=== PATIENT | male | born 1995 | race Caucasian/White ===

== ENCOUNTER 2018-11-19 00:14 | Emergency (ER) | payer OTHER | END 2018-11-19 01:36 | disposition other institution (70) | LOC: ED 00:14 | DX: Z02.89 Encounter for other administrative examinations (principal) ==

== ENCOUNTER 2018-11-19 00:14 | Emergency (ER) | payer SELFPAY ==
[~2018-11-19] VITALS: Ht 170.2 cm; Wt 60.8 kg
[2018-11-19 00:27] VITALS: Ht 170.2 cm; Wt 60.8 kg
[2018-11-19 01:36] VITALS: BP 158/60
== END 2018-11-19 01:36 | disposition other institution (70) ==
LOC: ED 00:14
DX: S00.31XA Abrasion of nose, initial encounter (principal); K13.79 Other lesions of oral mucosa; R07.89 Other chest pain; F10.129 Alcohol abuse with intoxication, unspecified; W20.8XXA Other cause of strike by thrown, projected or falling object, initial encounter; Y93.89 Activity, other specified; Y92.89 Other specified places as the place of occurrence of the external cause; Y99.8 Other external cause status